=== PATIENT | female | born 2000 | race Caucasian/White ===

== ENCOUNTER 2022-05-05 14:47 | Emergency (ER) | payer BC, OTHER ==
[2022-05-05 14:58] VITALS: BMI 24.3
[2022-05-05] MEDS ORDERED: LORazepam 2 MG/ML SDV VIAL IVPUSH ONE ×2 (15:00→16:45)
[2022-05-05] MEDS ORDERED: ONDANSETRON 4 MG/2 ML VIAL IVPUSH ONE (15:00)
[2022-05-05] MEDS ORDERED: MAGNESIUM SULF 50% (8.12 MEQ/2 ML-1 GM VIAL) IVPB ONE (15:01)
[2022-05-05] MEDS ORDERED: FOLIC ACID INJECTION - 1 MG, THIAMINE HCL 100 MG, MULTIVIT INJECTION ADULT 10 ML in SOD... IVPB ONE (15:01)
[2022-05-05] MEDS ORDERED: SODIUM CHLORIDE 0.9% 500 ML INFUS.BAG IV ONE (15:04)
[2022-05-05] MEDS ORDERED: PANTOPRAZOLE SODIUM 40 MG VIAL IVPUSH ONE (15:05)
[2022-05-05] MEDS ORDERED: ONDANSETRON 4 MG/2 ML VIAL ONE (15:08)
[2022-05-05] MEDS ORDERED: THIAMINE HCL 200 MG/2 ML VIAL ONE (15:08)
[2022-05-05] MEDS ORDERED: FOLIC ACID 5 MG/1 ML ONE (15:09)
[2022-05-05] MEDS ORDERED: MAGNESIUM 1GM/D5W - 1 GM/100 ML IVPB IVPB ONE (15:09)
[2022-05-05] MEDS ORDERED: MULTIVIT INJ. ADULT COMBO WITH VIT K 1 COMBO 10 ML VIAL IV ONE (15:10)
[2022-05-05 15:35] LABS: HEMATOCRIT 45.6 % (32.4-45.2); MCH 36.2 pg (25.7-33.7); MCHC 35.1 g/dl (32.0-36.0); MEAN CELL VOLUME 103.1 fl (80-96); MEAN PLT VOLUME 7.4 fl (7.5-11.1); PLATELET COUNT 292.3 10^3/uL (134-434); RBC 4.42 10^6/uL (3.60-5.2); RDW 13.2 % (11.6-15.6); WHITE BLOOD COUNT 17.3 10^3/uL (4.0-10.8)
[2022-05-05 15:43] LABS: ALBUMIN 4.9 g/dl (3.4-5.0); BILIRUBIN,TOTAL 3.3 mg/dl (0.2-1); CALCIUM 10.2 mg/dl (8.5-10); CREATININE 0.9 mg/dl (0.55-1.3); MAGNESIUM 1.6 mg/dL (1.8-2.4); PHOSPHOROUS 5.2 mg/dl (2.5-4.9); TOT PROT 8.5 g/dl (6.4-8.2)
[2022-05-05] MEDS ORDERED: PANTOPRAZOLE SODIUM 40 MG VIAL ONE (16:11)
[2022-05-05] MEDS ORDERED: METOCLOPRAMIDE HCL INJECTION 10 MG/2 ML VIAL IVPB ONE (16:36)
[2022-05-05] MEDS ORDERED: METOCLOPRAMIDE HCL INJECTION 10 MG/2 ML VIAL ONE (17:05)
[2022-05-05] MEDS ORDERED: LIDOCAINE VISCOUS 2% ORAL/TOP 15 ML UNIT-DOSE CUP MM ONE (17:33)
[2022-05-05] MEDS ORDERED: DEXAMETHASONE SOD PHOSPHATE 10 MG/1 ML VIAL IVPUSH ONE (17:38)
[2022-05-05 17:41] LABS: VENOUS BASE EXCESS -9.3 mmol/L (-2-2); VENOUS O2 SATURATION 69.7 % (70-80); VENOUS PCO2 35.7 mmHg (38-52); VENOUS PH 7.28 (7.310-7.410)
[2022-05-05] MEDS ORDERED: DEXAMETHASONE SOD PHOSPHATE 10 MG/1 ML VIAL ONE (17:41)
[2022-05-05 19:15] VITALS: BP 133/88; PULSE 94; RESP 16; TEMP 98.6
== END 2022-05-05 19:45 | disposition short-term general hospital (02) ==
LOC: FER 14:47
PROC: 3E0333Z Introduction of Anti-inflammatory into Peripheral Vein, Percutaneous Approach (ICD-10-PCS; principal; 2022-05-05)
PROC: 3E033NZ Introduction of Analgesics, Hypnotics, Sedatives into Peripheral Vein, Percutaneous Approach (ICD-10-PCS; 2022-05-05)
PROC: 3E033GC Introduction of Other Therapeutic Substance into Peripheral Vein, Percutaneous Approach (ICD-10-PCS; 2022-05-05)
PROC: 3E033NZ Introduction of Analgesics, Hypnotics, Sedatives into Peripheral Vein, Percutaneous Approach (ICD-10-PCS; 2022-05-05)
PROC: 3E033GC Introduction of Other Therapeutic Substance into Peripheral Vein, Percutaneous Approach (ICD-10-PCS; 2022-05-05)
PROC: 3E033GC Introduction of Other Therapeutic Substance into Peripheral Vein, Percutaneous Approach (ICD-10-PCS; 2022-05-05)
PROC: 3E033GC Introduction of Other Therapeutic Substance into Peripheral Vein, Percutaneous Approach (ICD-10-PCS; 2022-05-05)
PROC: 3E033GC Introduction of Other Therapeutic Substance into Peripheral Vein, Percutaneous Approach (ICD-10-PCS; 2022-05-05)
DX: R11.10 Vomiting, unspecified (principal); M54.2 Cervicalgia; F10.239 Alcohol dependence with withdrawal, unspecified
CPT/HCPCS: 36415; 70360-TC-FY; 70490-TC; 71045-TC-FY; 71250-TC; 80053; 81025; 82010; 82803; 83690; 83735; 84100; 85027; 93005; 99291; J1100

== ENCOUNTER 2023-03-09 18:20 | Inpatient (IN) | payer BC, OTHER ==
[2023-03-09] MEDS ORDERED: FAMOTIDINE 20 MG/50 ML IVPB 20 MG/50 ML MG IVPB ONE ×2 (18:50→19:01)
[2023-03-09] MEDS ORDERED: SODIUM CHLORIDE 1,000 ML IV STA (18:50)
[2023-03-09] MEDS ORDERED: ONDANSETRON 4 MG/2 ML VIAL IVPUSH ONE (18:50)
[2023-03-09] MEDS ORDERED: ONDANSETRON 4 MG/2 ML VIAL ONE (19:01)
[2023-03-09 19:17] LABS: HEMATOCRIT 42.9 % (32.4-45.2); HEMOGLOBIN 14.8 G/dL (10.7-15.3); MCH 34.4 pg (25.7-33.7); MCHC 34.5 g/dl (32.0-36.0); MEAN CELL VOLUME 99.7 fl (80-96); MEAN PLT VOLUME 7.4 fl (7.5-11.1); RDW 14.4 % (11.6-15.6); WHITE BLOOD COUNT 7.6 10^3/uL (4.0-10.8)
[2023-03-09 19:28] LABS: ALBUMIN 4.5 g/dl (3.4-5.0); BILIRUBIN,TOTAL 0.7 mg/dl (0.2-1); CALCIUM 8.9 mg/dl (8.5-10); CREATININE 0.6 mg/dl (0.55-1.3); MAGNESIUM 2.2 mg/dL (1.8-2.4); POTASSIUM 3.6 mmol/L (3.5-5.1); TOT PROT 7.8 g/dl (6.4-8.2)
[2023-03-09 19:41] LABS: PLATELET ESTIMATE ADEQUATE
[2023-03-09] MEDS ORDERED: chlordiazePOXIDE HCL 25 MG CAPSULE PO ONE (20:03)
[2023-03-09] MEDS ORDERED: chlordiazePOXIDE HCL 25 MG CAPSULE ONE (20:12)
[2023-03-09] MEDS ORDERED: FOLIC ACID INJECTION - 1 MG, THIAMINE HCL 100 MG, MULTIVIT INJECTION ADULT 10 ML in SOD... IVPB ONE ×2 (20:25→21:51)
[2023-03-09] MEDS ORDERED: THIAMINE HCL 200 MG/2 ML VIAL ONE (20:34)
[2023-03-09] MEDS ORDERED: FOLIC ACID 5 MG/1 ML ONE (20:36)
[2023-03-09 21:10] LABS: HCG,QUALITATIVE URINE NEGATIVE
[2023-03-09 21:32] LABS: EPITHELIAL CELLS FEW /hpf
[2023-03-09] MEDS ORDERED: chlordiazePOXIDE HCL 10 MG CAPSULE PO PRN (21:48)
[2023-03-09] MEDS ORDERED: THIAMINE HCL 200 MG/2 ML VIAL IM ONE ×2 (21:52→23:00)
[2023-03-09] MEDS ORDERED: ONDANSETRON 4 MG/2 ML VIAL IVPUSH PRN (21:58)
[2023-03-09 22:02] LABS: MAGNESIUM 2.2 mg/dL (1.8-2.4); PHOSPHOROUS 4.1 mg/dl (2.5-4.9)
[2023-03-09 22:27] VITALS: BMI 26.2
[2023-03-09] MEDS: FAMOTIDINE 20 MG/50 ML IVPB 20 MG/50 ML MG IVPB SCH (23:12)
[2023-03-10] MEDS: chlordiazePOXIDE HCL 25 MG CAPSULE PO SCH ×5 (02:00→16:23)
[2023-03-10 08:19] LABS: ALBUMIN 3.7 g/dl (3.4-5.0); BILIRUBIN,TOTAL 0.6 mg/dl (0.2-1); CALCIUM 8.6 mg/dl (8.5-10); CREATININE 0.7 mg/dl (0.55-1.3); MAGNESIUM 1.8 mg/dL (1.8-2.4); POTASSIUM 5.1 mmol/L (3.5-5.1); TOT PROT 6.6 g/dl (6.4-8.2)
[2023-03-10] MEDS ORDERED: chlordiazePOXIDE 5 MG CAPSULE ONE (08:58)
[2023-03-10] MEDS: FOLIC ACID 1 MG TABLET (FP) PO SCH (09:13)
[2023-03-10] MEDS: SERTRALINE HCL 25 MG TABLET (FP) PO SCH (09:14)
[2023-03-10] MEDS: THIAMINE HCL 100 MG TABLET (FP) PO SCH (09:14)
[2023-03-10] MEDS: FAMOTIDINE 20 MG/50 ML IVPB 20 MG/50 ML MG IVPB SCH ×2 (09:15→21:11)
[2023-03-10] MEDS ORDERED: chlordiazePOXIDE 5 MG CAPSULE PO PRN (09:17)
[2023-03-11] MEDS: chlordiazePOXIDE HCL 25 MG CAPSULE PO SCH ×5 (05:00→21:48)
[2023-03-11 08:22] LABS: ALBUMIN 3.8 g/dl (3.4-5.0); BILIRUBIN,TOTAL 1.4 mg/dl (0.2-1); CALCIUM 9.4 mg/dl (8.5-10); CREATININE 0.8 mg/dl (0.55-1.3); MAGNESIUM 1.9 mg/dL (1.8-2.4); PHOSPHOROUS 4.2 mg/dl (2.5-4.9); POTASSIUM 3.8 mmol/L (3.5-5.1); TOT PROT 6.8 g/dl (6.4-8.2)
[2023-03-11] MEDS: SERTRALINE HCL 25 MG TABLET (FP) PO SCH (10:18)
[2023-03-11] MEDS: THIAMINE HCL 100 MG TABLET (FP) PO SCH (10:18)
[2023-03-11] MEDS: FOLIC ACID 1 MG TABLET (FP) PO SCH (10:18)
[2023-03-11] MEDS: FAMOTIDINE 20 MG/50 ML IVPB 20 MG/50 ML MG IVPB SCH ×2 (10:18→21:48)
[2023-03-12] MEDS: chlordiazePOXIDE HCL 25 MG CAPSULE PO SCH ×4 (01:15→17:41)
[2023-03-12] MEDS: SERTRALINE HCL 25 MG TABLET (FP) PO SCH (09:39)
[2023-03-12] MEDS: THIAMINE HCL 100 MG TABLET (FP) PO SCH (09:39)
[2023-03-12] MEDS: FOLIC ACID 1 MG TABLET (FP) PO SCH (09:39)
[2023-03-12] MEDS: FAMOTIDINE 20 MG/50 ML IVPB 20 MG/50 ML MG IVPB SCH ×2 (09:40→21:14)
[2023-03-12] MEDS ORDERED: SERTRALINE HCL 25 MG TABLET (FP) PO ONE (10:45)
[2023-03-12 14:13] VITALS: RESP 18
[2023-03-12 14:15] LABS: ALBUMIN 4.3 g/dl (3.4-5.0); BILIRUBIN,TOTAL 0.8 mg/dl (0.2-1); CALCIUM 9.4 mg/dl (8.5-10.1); CREATININE 0.8 mg/dl (0.6-1.3); POTASSIUM 3.8 mmol/L (3.5-5.1); SGOT/AST 32.5 U/L (15-37); SGPT/ALT 24.4 U/L (7-52); TOT PROT 6.6 g/dl (6.4-8.2)
[2023-03-12 19:34] VITALS: PULSE 71
[2023-03-12] MEDS ORDERED: chlordiazePOXIDE HCL 10 MG CAPSULE PO SCH (20:00)
[2023-03-12] MEDS: chlordiazePOXIDE HCL 10 MG CAPSULE PO SCH (21:14)
[2023-03-13] MEDS: chlordiazePOXIDE HCL 10 MG CAPSULE PO SCH ×3 (06:12→12:35)
[2023-03-13 06:29] VITALS: BP 119/85; TEMP 97.5
[2023-03-13] MEDS: FOLIC ACID 1 MG TABLET (FP) PO SCH (09:56)
[2023-03-13] MEDS: THIAMINE HCL 100 MG TABLET (FP) PO SCH (09:57)
[2023-03-13] MEDS: FAMOTIDINE 20 MG/50 ML IVPB 20 MG/50 ML MG IVPB SCH (09:57)
[2023-03-13] MEDS ORDERED: SERTRALINE HCL 50 MG TABLET (FP) PO SCH (10:00)
[2023-03-13] MEDS ORDERED: chlordiazePOXIDE HCL 10 MG CAPSULE PO SCH ×2 (20:00)
[2023-03-14] MEDS ORDERED: chlordiazePOXIDE HCL 10 MG CAPSULE PO SCH
== END 2023-03-13 16:44 | disposition home or self-care (01) | DRG 897 ==
LOC: FER 18:20 → FM/S 20:27
PROVIDERS: ADMIT Internal Medicine; ATTEND Internal Medicine
PROC: HZ2ZZZZ Detoxification Services for Substance Abuse Treatment (ICD-10-PCS; principal; 2023-03-09)
DX: F10.239 Alcohol dependence with withdrawal, unspecified (principal); R44.3 Hallucinations, unspecified
CPT/HCPCS: 36415; 80053; 81003; 81015; 83690; 83735; 84100; 84703; 85027; 93005; 99285-25

== ENCOUNTER 2023-03-27 19:07 | Observation (INO) | payer BC, OTHER ==
[2023-03-27] MEDS ORDERED: FOLIC ACID INJECTION - 1 MG, THIAMINE HCL 100 MG, MULTIVIT INJECTION ADULT 10 ML in SOD... IVPB ONE (19:41)
[2023-03-27] MEDS ORDERED: THIAMINE HCL 200 MG/2 ML VIAL ONE (19:54)
[2023-03-27] MEDS ORDERED: MULTIVIT INJ. ADULT COMBO WITH VIT K 1 COMBO 10 ML VIAL IV ONE (19:55)
[2023-03-27] MEDS ORDERED: FOLIC ACID 5 MG/1 ML ONE (19:55)
[2023-03-27 20:13] LABS: HEMATOCRIT 41.8 % (32.4-45.2); HEMOGLOBIN 14.3 G/dL (10.7-15.3); MCH 34.7 pg (25.7-33.7); MCHC 34.3 g/dl (32.0-36.0); MEAN CELL VOLUME 101.1 fl (80-96); MEAN PLT VOLUME 7.2 fl (7.5-11.1); PLATELET COUNT 294.9 10^3/uL (134-434); RBC 4.13 10^6/uL (3.60-5.2); RDW 14.1 % (11.6-15.6); WHITE BLOOD COUNT 10.5 10^3/uL (4.0-10.8)
[2023-03-27 20:36] LABS: BLOOD UREA NITROGEN 10.1 mg/dl (7-18)
[2023-03-27 20:37] LABS: ALBUMIN 4.6 g/dl (3.4-5.0); BILIRUBIN,TOTAL 0.3 mg/dl (0.2-1); CALCIUM 9.1 mg/dl (8.5-10.1); CREATININE 0.6 mg/dl (0.6-1.3); POTASSIUM 3.8 mmol/L (3.5-5.1); TOT PROT 7.4 g/dl (6.4-8.2)
[2023-03-27 20:38] LABS: SGOT/AST 37.3 U/L (15-37); SGPT/ALT 20.2 U/L (7-52)
[2023-03-27 20:41] LABS: PLATELET ESTIMATE ADEQUATE
[2023-03-27 22:18] LABS: LACTIC ACID 2.4 mmol/L (0.4-2.0)
[2023-03-27] MEDS: chlordiazePOXIDE HCL 25 MG CAPSULE PO SCH (22:45)
[2023-03-27 23:34] VITALS: BMI 24.9
[2023-03-28] MEDS: chlordiazePOXIDE HCL 25 MG CAPSULE PO SCH ×4 (05:07→23:13)
[2023-03-28] MEDS: ONDANSETRON 4 MG/2 ML VIAL IVPUSH PRN ×3 (05:09→15:19)
[2023-03-28] MEDS ORDERED: FOLIC ACID INJECTION - 1 MG, THIAMINE HCL 100 MG, MULTIVIT INJECTION ADULT 10 ML in SOD... IVPB ONE (07:43)
[2023-03-28] MEDS: chlordiazePOXIDE HCL 25 MG CAPSULE PO PRN ×2 (07:56→15:19)
[2023-03-28] MEDS: FAMOTIDINE 20 MG/50 ML IVPB 20 MG/50 ML MG IVPB SCH ×2 (09:18→21:30)
[2023-03-28] MEDS ORDERED: SERTRALINE HCL 50 MG TABLET (FP) PO ONE (19:35)
[2023-03-29] MEDS ORDERED: chlordiazePOXIDE HCL 25 MG CAPSULE PO PRN (00:01)
[2023-03-29] MEDS: FOLIC ACID 1 MG TABLET (FP) PO SCH (09:16)
[2023-03-29] MEDS: THIAMINE HCL 100 MG TABLET (FP) PO SCH (09:16)
[2023-03-29] MEDS: SERTRALINE HCL 50 MG TABLET (FP) PO SCH (09:16)
[2023-03-29 09:32] VITALS: RESP 18
[2023-03-29] MEDS: FAMOTIDINE 20 MG/50 ML IVPB 20 MG/50 ML MG IVPB SCH ×2 (10:05→21:42)
[2023-03-29 11:02] LABS: POTASSIUM 4.5 mmol/L (3.5-5.1)
[2023-03-29 11:06] LABS: CALCIUM 9.3 mg/dL (8.5-10.1)
[2023-03-29 11:07] LABS: ALBUMIN 3.4 g/dl (3.4-5.0)
[2023-03-29 11:10] LABS: CREATININE 0.6 mg/dL (0.55-1.3)
[2023-03-29 11:12] LABS: BILIRUBIN,TOTAL 1.3 mg/dL (0.2-1); TOT PROT 6.6 g/dl (6.4-8.2)
[2023-03-29] MEDS: chlordiazePOXIDE HCL 25 MG CAPSULE PO SCH ×2 (17:30→23:05)
[2023-03-30] MEDS ORDERED: chlordiazePOXIDE HCL 10 MG CAPSULE PO SCH (00:01)
[2023-03-30] MEDS: chlordiazePOXIDE HCL 10 MG CAPSULE PO SCH ×3 (05:19→16:47)
[2023-03-30] MEDS: SERTRALINE HCL 50 MG TABLET (FP) PO SCH (09:35)
[2023-03-30] MEDS: FOLIC ACID 1 MG TABLET (FP) PO SCH (09:35)
[2023-03-30] MEDS: THIAMINE HCL 100 MG TABLET (FP) PO SCH (09:35)
[2023-03-30] MEDS: FAMOTIDINE 20 MG/50 ML IVPB 20 MG/50 ML MG IVPB SCH (09:35)
[2023-03-30 14:09] VITALS: BP 116/72; PULSE 61; TEMP 98.5
[2023-03-30 14:21] LABS: BLOOD UREA NITROGEN 8.2 mg/dl (7-18); CALCIUM 10.4 mg/dl (8.5-10.1); CREATININE 0.8 mg/dl (0.6-1.3); POTASSIUM 4.6 mmol/L (3.5-5.1); SGPT/ALT 20.6 U/L (7-52); TOT PROT 7.9 g/dl (6.4-8.2)
== END 2023-03-30 17:14 | disposition home or self-care (01) ==
LOC: FER 19:07 → FM/S 19:17 → INTOOBSV 19:17 → FM/S 20:33
PROVIDERS: ADMIT Internal Medicine; ATTEND Internal Medicine
PROC: 3E033GC Introduction of Other Therapeutic Substance into Peripheral Vein, Percutaneous Approach (ICD-10-PCS; principal; 2023-03-27)
DX: F10.939 Alcohol use, unspecified with withdrawal, unspecified (principal); E87.20 Acidosis, unspecified; F17.210 Nicotine dependence, cigarettes, uncomplicated
CPT/HCPCS: 36415; 80053; 82607; 83605; 85027; 93005; 99285-25; G0378

== ENCOUNTER 2023-05-24 18:42 | Observation (INO) | payer BC, OTHER ==
[2023-05-24] MEDS ORDERED: SODIUM CHLORIDE 1,000 ML IV STA (19:41)
[2023-05-24] MEDS ORDERED: FOLIC ACID INJECTION - 1 MG, THIAMINE HCL 100 MG, MULTIVIT INJECTION ADULT 10 ML in SOD... IVPB ONE ×2 (19:42→20:56)
[2023-05-24] MEDS ORDERED: FOLIC ACID 5 MG/1 ML ONE (19:48)
[2023-05-24] MEDS ORDERED: THIAMINE HCL 200 MG/2 ML VIAL ONE (19:48)
[2023-05-24] MEDS ORDERED: MULTIVIT INJ. ADULT COMBO WITH VIT K 1 COMBO 10 ML VIAL IV ONE (19:50)
[2023-05-24] MEDS ORDERED: ONDANSETRON 4 MG/2 ML VIAL IVPUSH ONE (20:02)
[2023-05-24 20:07] LABS: HCG,QUALITATIVE URINE Negative
[2023-05-24] MEDS ORDERED: ONDANSETRON 4 MG/2 ML VIAL ONE (20:14)
[2023-05-24 20:21] LABS: ALBUMIN 4.8 g/dl (3.4-5.0); BLOOD UREA NITROGEN 6.7 mg/dl (7-18); CALCIUM 9.4 mg/dl (8.5-10.1); CREATININE 0.5 mg/dl (0.6-1.3); SGOT/AST 154.9 U/L (15-37); SGPT/ALT 108.8 U/L (7-52); TOT PROT 7.5 g/dl (6.4-8.2)
[2023-05-24 20:22] LABS: EPITHELIAL CELLS MODERATE /hpf
[2023-05-24 20:26] LABS: HEMATOCRIT 42.5 % (32.4-45.2); HEMOGLOBIN 14.7 G/dL (10.7-15.3); MCH 35.4 pg (25.7-33.7); MCHC 34.6 g/dl (32.0-36.0); MEAN CELL VOLUME 102.3 fl (80-96); MEAN PLT VOLUME 6.6 fl (7.5-11.1); PLATELET COUNT 243.8 10^3/uL (134-434); RBC 4.15 10^6/uL (3.60-5.2); RDW 13.6 % (11.6-15.6)
[2023-05-24 20:41] LABS: ANISOCYTOSIS 1+; MACROCYTOSIS 2+; PLATELET ESTIMATE ADEQUATE
[2023-05-24] MEDS ORDERED: chlordiazePOXIDE HCL 25 MG CAPSULE PO ONE (20:47)
[2023-05-24] MEDS ORDERED: ONDANSETRON 4 MG/2 ML VIAL IVPUSH PRN (20:59)
[2023-05-24] MEDS ORDERED: chlordiazePOXIDE HCL 25 MG CAPSULE ONE (21:00)
[2023-05-24 21:17] LABS: OPIATES, URI NEGATIVE (NEGATIVE); URINE AMPHETAMINES NEGATIVE (NEGATIVE)
[2023-05-24 21:17] LABS: BILIRUBIN,TOTAL 0.8 mg/dL (0.2-1)
[2023-05-24 21:18] LABS: PHENCYCLIDINE,URINE NEGATIVE (NEGATIVE); URINE BARBITURATES NEGATIVE (NEGATIVE); URINE BENZODIAZEPINES NEGATIVE (NEGATIVE)
[2023-05-24 21:19] LABS: COCAINE, UR NEGATIVE (NEGATIVE); METHADONE, UR NEGATIVE (NEGATIVE)
[2023-05-24 23:52] VITALS: BMI 27.8
[2023-05-25] MEDS: chlordiazePOXIDE HCL 25 MG CAPSULE PO SCH ×5 (03:02→22:00)
[2023-05-25 09:31] LABS: ALBUMIN 4.1 g/dl (3.4-5.0); BLOOD UREA NITROGEN 8.3 mg/dl (7-18); CALCIUM 9.2 mg/dl (8.5-10.1); CREATININE 0.5 mg/dl (0.6-1.3); POTASSIUM 3.8 mmol/L (3.5-5.1); SGOT/AST 104.7 U/L (15-37); SGPT/ALT 86.1 U/L (7-52); TOT PROT 6.3 g/dl (6.4-8.2)
[2023-05-25 10:34] LABS: BILIRUBIN,TOTAL 0.9 mg/dL (0.2-1)
[2023-05-25] MEDS: PANTOPRAZOLE SODIUM 40 MG VIAL IVPUSH SCH (10:58)
[2023-05-25] MEDS: SERTRALINE HCL 50 MG TABLET (FP) PO SCH (10:59)
[2023-05-25] MEDS ORDERED: FOLIC ACID INJECTION - 1 MG, THIAMINE HCL 100 MG, MULTIVIT INJECTION ADULT 10 ML in SOD... IVPB ONE (12:00)
[2023-05-26] MEDS: chlordiazePOXIDE HCL 25 MG CAPSULE PO SCH ×5 (05:30→23:11)
[2023-05-26] MEDS: PANTOPRAZOLE SODIUM 40 MG VIAL IVPUSH SCH (09:16)
[2023-05-26] MEDS: SERTRALINE HCL 50 MG TABLET (FP) PO SCH (09:17)
[2023-05-26] MEDS: THIAMINE HCL 100 MG TABLET (FP) PO SCH (09:17)
[2023-05-26] MEDS: FOLIC ACID 1 MG TABLET (FP) PO SCH (09:17)
[2023-05-26 09:22] VITALS: RESP 18
[2023-05-26 09:26] LABS: ALBUMIN 4.3 g/dl (3.4-5.0); BLOOD UREA NITROGEN 8.7 mg/dl (7-18); CREATININE 0.7 mg/dl (0.6-1.3); POTASSIUM 4.7 mmol/L (3.5-5.1); SGOT/AST 62.2 U/L (15-37); SGPT/ALT 72.5 U/L (7-52); TOT PROT 6.7 g/dl (6.4-8.2)
[2023-05-27] MEDS: chlordiazePOXIDE HCL 25 MG CAPSULE PO SCH ×2 (05:23→10:54)
[2023-05-27 09:12] LABS: ALBUMIN 4.2 g/dl (3.4-5.0); BLOOD UREA NITROGEN 9.3 mg/dl (7-18); CALCIUM 9.5 mg/dl (8.5-10.1); CREATININE 0.7 mg/dl (0.6-1.3); POTASSIUM 3.8 mmol/L (3.5-5.1); SGOT/AST 49.1 U/L (15-37); SGPT/ALT 63.3 U/L (7-52); TOT PROT 6.6 g/dl (6.4-8.2)
[2023-05-27] MEDS: SERTRALINE HCL 50 MG TABLET (FP) PO SCH (10:54)
[2023-05-27] MEDS: THIAMINE HCL 100 MG TABLET (FP) PO SCH (10:54)
[2023-05-27] MEDS: FOLIC ACID 1 MG TABLET (FP) PO SCH (10:54)
[2023-05-27] MEDS: PANTOPRAZOLE SODIUM 40 MG VIAL IVPUSH SCH (10:54)
[2023-05-27 12:17] LABS: BILIRUBIN,TOTAL 0.9 mg/dL (0.2-1)
[2023-05-27 14:35] VITALS: BP 119/80; PULSE 90; TEMP 98.3
== END 2023-05-27 14:32 | disposition home or self-care (01) ==
LOC: FER 18:42 → FM/S 20:48
PROVIDERS: ADMIT Internal Medicine; ATTEND Internal Medicine
PROC: 3E033GC Introduction of Other Therapeutic Substance into Peripheral Vein, Percutaneous Approach (ICD-10-PCS; principal; 2023-05-24)
DX: F10.939 Alcohol use, unspecified with withdrawal, unspecified (principal); K70.10 Alcoholic hepatitis without ascites; F41.9 Anxiety disorder, unspecified; K27.9 Peptic ulcer, site unspecified, unspecified as acute or chronic, without hemorrhage or perforation; K29.70 Gastritis, unspecified, without bleeding; Z13.89 Encounter for screening for other disorder; R00.0 Tachycardia, unspecified; E86.0 Dehydration; R25.1 Tremor, unspecified; F17.200 Nicotine dependence, unspecified, uncomplicated
CPT/HCPCS: 36415; 80053; 80307; 81003; 81015; 83690; 84703; 85027; 93005; 96365; 96366; 96375; 99285-25; G0378

== ENCOUNTER 2024-05-07 22:45 | Emergency (ER) | payer BC, OTHER ==
[2024-05-07 22:59] VITALS: BMI 25.7
[2024-05-08] MEDS ORDERED: ACETAMINOPHEN INJECTION 100 ML IVPB ONE (00:19)
[2024-05-08] MEDS: SODIUM CHLORIDE 1,000 ML IV STA (00:43)
[2024-05-08] MEDS: ACETAMINOPHEN 1000 MG/100 ML BAG IVPB ONE (00:45)
[2024-05-08 00:47] LABS: BASO % 0.4 % (0-2.0); EOS % 0.4 % (0-4.5); HEMATOCRIT 40.6 % (32.4-45.2); HEMOGLOBIN 14.3 GM/dL (10.7-15.3); LYMPH % 15.5 % (8-40); MCH 35.8 pg (25.7-33.7); MCHC 35.2 g/dl (32.0-36.0); MEAN CELL VOLUME 101.7 fl (80-96); MONO % 8.2 % (3.8-10.2); NEUT % 75.5 % (42.8-82.8); PLATELET COUNT 231 10^3/uL (134-434); RBC 3.99 M/mm3 (3.60-5.2)
[2024-05-08 00:51] LABS: HCG,QUALITATIVE URINE Negative; URINE APPEARANCE CLEAR; URINE BILIRUBIN NEGATIVE (NEGATIVE); URINE COLOR YELLOW; URINE GLUCOSE (UA) NEGATIVE (NEGATIVE); URINE KETONE NEGATIVE (NEGATIVE); URINE LEUK ESTERASE 3+ (NEGATIVE); URINE NITRITE NEGATIVE (NEGATIVE); URINE PROTEIN NEGATIVE (NEGATIVE); URINE UROBILINOGEN 0.2 mg/dL (0.2-1.0)
[2024-05-08 01:10] LABS: POTASSIUM 3.7 mmol/L (3.5-5.1)
[2024-05-08 01:12] LABS: ALBUMIN 4.3 g/dl (3.4-5.0); CALCIUM 9.6 mg/dL (8.5-10.1)
[2024-05-08 01:13] LABS: BLOOD UREA NITROGEN 4.4 mg/dL (7-18)
[2024-05-08 01:15] LABS: CREATININE 0.7 mg/dL (0.55-1.3)
[2024-05-08 01:17] LABS: BILIRUBIN,TOTAL 1.3 mg/dL (0.2-1); TOT PROT 8.1 g/dl (6.4-8.2)
[2024-05-08] MEDS: SULFAMETHOXAZOLE/TRIMETHOPRIM 800MG/160MG D.S. TABLET PO ONE (04:00)
[2024-05-08 04:11] LABS: EPI CELLS 6.5 /uL (0-25.1); URINE RBC 7.1 /uL (0-23.9)
[2024-05-08] MEDS ORDERED: SULFAMETHOXAZOLE/TRIMETHOPRIM 800MG/160MG D.S. TABLET ONE (04:11)
[2024-05-08 04:12] LABS: URINE BACTERIA 1686 /uL (0-1359)
[2024-05-08 04:24] VITALS: BP 114/73; PULSE 94; RESP 14; TEMP 98.9
== END 2024-05-08 04:34 | disposition home or self-care (01) ==
LOC: JER 22:45
PROC: 3E033NZ Introduction of Analgesics, Hypnotics, Sedatives into Peripheral Vein, Percutaneous Approach (ICD-10-PCS; principal; 2024-05-08)
PROC: 3E0337Z Introduction of Electrolytic and Water Balance Substance into Peripheral Vein, Percutaneous Approach (ICD-10-PCS; 2024-05-08)
DX: N39.0 Urinary tract infection, site not specified (principal); F10.10 Alcohol abuse, uncomplicated; R50.9 Fever, unspecified; R30.0 Dysuria; R35.0 Frequency of micturition; R10.31 Right lower quadrant pain; R10.32 Left lower quadrant pain; M54.9 Dorsalgia, unspecified; Y90.9 Presence of alcohol in blood, level not specified
CPT/HCPCS: 36415; 74176-TC; 80053; 81003; 84703; 85025; 85027; 87086; 87186; 99284-25; J0131

== ENCOUNTER 2024-07-01 22:37 | Emergency (ER) | payer BC, OTHER ==
[2024-07-01 22:41] VITALS: TEMP 97.9; BMI 25.7
[2024-07-01 23:26] LABS: BASO % 0.6 % (0-2.0); HEMATOCRIT 38.9 % (32.4-45.2); HEMOGLOBIN 13.4 GM/dL (10.7-15.3); LYMPH % 43.2 % (8-40); MCH 35.3 pg (25.7-33.7); MCHC 34.6 g/dl (32.0-36.0); MEAN CELL VOLUME 102.1 fl (80-96); MEAN PLT VOLUME 6.4 fl (7.5-11.1); MONO % 9.1 % (3.8-10.2); NEUT % 46.1 % (42.8-82.8); PLATELET COUNT 247 10^3/uL (134-434); RDW 13.3 % (11.6-15.6); WHITE BLOOD COUNT 6.3 K/mm3 (4.0-10.0)
[2024-07-01] MEDS ORDERED: ONDANSETRON 4 MG/2 ML VIAL ONE (23:27)
[2024-07-01] MEDS ORDERED: MAG HYDROX/AL HYDROX/SIMETH 30 ML UNIT-DOSE CUP ONE (23:27)
[2024-07-01] MEDS ORDERED: FAMOTIDINE 20 MG/50 ML IVPB 20 MG/50 ML MG IVPB ONE (23:27)
[2024-07-01] MEDS: MAG HYDROX/AL HYDROX/SIMETH 30 ML UNIT-DOSE CUP PO ONE (23:37)
[2024-07-01] MEDS: FAMOTIDINE 20 MG/50 ML IVPB 20 MG/50 ML MG IVPB ONE (23:38)
[2024-07-01] MEDS: ONDANSETRON 4 MG/2 ML VIAL IVPUSH ONE (23:38)
[2024-07-01] MEDS: SODIUM CHLORIDE 0.9% 500 ML INFUS.BAG IV ONE (23:38)
[2024-07-01 23:44] LABS: POTASSIUM 3.4 mmol/L (3.5-5.1)
[2024-07-01 23:45] LABS: ALBUMIN 4.4 g/dl (3.4-5.0); CALCIUM 9.2 mg/dL (8.5-10.1)
[2024-07-01 23:46] LABS: PH,URINE 6.5 (5.0-8.0); URINE APPEARANCE CLEAR; URINE BILIRUBIN NEGATIVE (NEGATIVE); URINE COLOR YELLOW; URINE GLUCOSE (UA) NEGATIVE (NEGATIVE); URINE KETONE NEGATIVE (NEGATIVE); URINE LEUK ESTERASE NEGATIVE (NEGATIVE); URINE NITRITE NEGATIVE (NEGATIVE); URINE PROTEIN NEGATIVE (NEGATIVE); URINE UROBILINOGEN 0.2 mg/dL (0.2-1.0)
[2024-07-01 23:47] LABS: BLOOD UREA NITROGEN 4.5 mg/dL (7-18)
[2024-07-01 23:49] LABS: CREATININE 0.5 mg/dL (0.55-1.3)
[2024-07-01 23:51] LABS: BILIRUBIN,TOTAL 1.1 mg/dL (0.2-1); TOT PROT 7.7 g/dl (6.4-8.2)
[2024-07-02 00:45] LABS: HIV INTERPRETATION NEGATIVE (NEGATIVE)
[2024-07-02 02:45] VITALS: BP 121/78; PULSE 88; RESP 16
== END 2024-07-02 02:40 | disposition home or self-care (01) ==
LOC: JER 22:37
PROC: 3E033GC Introduction of Other Therapeutic Substance into Peripheral Vein, Percutaneous Approach (ICD-10-PCS; principal; 2024-07-01)
PROC: 3E033GC Introduction of Other Therapeutic Substance into Peripheral Vein, Percutaneous Approach (ICD-10-PCS; 2024-07-01)
DX: F10.920 Alcohol use, unspecified with intoxication, uncomplicated (principal); R11.2 Nausea with vomiting, unspecified; Y90.9 Presence of alcohol in blood, level not specified
CPT/HCPCS: 36415; 80053; 81003; 83690; 84703; 85025; 86803; 87086; 87389; 93005; 93010; 99284-25

== ENCOUNTER 2024-12-15 20:54 | Emergency (ER) | payer BC, OTHER ==
[2024-12-15 21:11] VITALS: BP 141/101; PULSE 151; RESP 20; BMI 26.5
[2024-12-15 21:18] VITALS: TEMP 98.4
[2024-12-15] MEDS ORDERED: TRANEXAMIC ACID 1000 MG/10 ML VIAL ONE (21:27)
[2024-12-15] MEDS ORDERED: ONDANSETRON 4 MG/2 ML VIAL ONE (21:38)
[2024-12-15] MEDS ORDERED: PANTOPRAZOLE SODIUM 40 MG/100 ML BAG IVPB ONE (21:39)
[2024-12-15] MEDS ORDERED: diazePAM CARPU-JECT 10 MG/2 ML DISP.SYRIN ONE ×2 (21:42→22:36)
[2024-12-15 21:46] LABS: HEMOGLOBIN 14.1 g/dL (11.2-15.7); MCHC 33.6 g/dl (32.2-35.5); MEAN CELL VOLUME 100.7 fl (79.4-94.8); MEAN PLT VOLUME 8.6 fl (9.4-12.3); PLATELET COUNT # 255 x10^3/uL (182-369); RDW 12.4 % (12.1-16.5)
[2024-12-15 21:57] LABS: POTASSIUM 3.9 mmol/L (3.5-5.1)
[2024-12-15 21:59] LABS: CALCIUM 9.5 mg/dL (8.5-10.1)
[2024-12-15] MEDS: TRANEXAMIC ACID 1000 MG/10 ML VIAL IVPB ONE (21:59)
[2024-12-15] MEDS: ONDANSETRON 4 MG/2 ML VIAL IVPUSH ONE (21:59)
[2024-12-15] MEDS: PANTOPRAZOLE SODIUM 40 MG VIAL IVPUSH ONE (21:59)
[2024-12-15 22:00] LABS: ALBUMIN 4.3 g/dl (3.4-5.0); BLOOD UREA NITROGEN 8.5 mg/dL (7-18)
[2024-12-15] MEDS: diazePAM CARPU-JECT 10 MG/2 ML DISP.SYRIN IVPUSH ONE ×3 (22:00→23:16)
[2024-12-15 22:03] LABS: CREATININE 0.8 mg/dL (0.55-1.3)
[2024-12-15 22:05] LABS: TOT PROT 8.3 g/dl (6.4-8.2)
[2024-12-15 22:08] LABS: INR 1.05 (0.83-1.09); PROTHROMBIN TIME (PATIENT) 11.4 SEC (9.7-13.0)
[2024-12-15 22:11] LABS: ACTIVATED PTT 30.2 SECONDS (25.2-36.5)
[2024-12-15] MEDS: chlordiazePOXIDE HCL 25 MG CAPSULE PO ONE (23:47)
== END 2024-12-15 23:54 | disposition home or self-care (01) ==
LOC: JER 20:54
PROC: 3E033GC Introduction of Other Therapeutic Substance into Peripheral Vein, Percutaneous Approach (ICD-10-PCS; principal; 2024-12-15)
PROC: 3E033GC Introduction of Other Therapeutic Substance into Peripheral Vein, Percutaneous Approach (ICD-10-PCS; 2024-12-15)
PROC: 3E033GC Introduction of Other Therapeutic Substance into Peripheral Vein, Percutaneous Approach (ICD-10-PCS; 2024-12-15)
PROC: 3E033GC Introduction of Other Therapeutic Substance into Peripheral Vein, Percutaneous Approach (ICD-10-PCS; 2024-12-15)
DX: K92.0 Hematemesis (principal); F41.9 Anxiety disorder, unspecified; R00.0 Tachycardia, unspecified; Z98.818 Other dental procedure status
CPT/HCPCS: 36415; 80053; 84703; 85025; 85610; 85730; 86850; 86900; 86901; 93005; 93010; 99284-25